=== PATIENT | female | born 1940 | race Caucasian/White ===

== ENCOUNTER 2019-10-08 09:01 | Outpatient (CLI) | payer MEDICARE ==
--- NOTE | 2019-10-08 09:25 | RAD ---
EXAM: 4 views of the right knee HISTORY: Knee pain COMPARISON: None FINDINGS: A small knee effusion is seen. There appears to be a fracture of the patella. No significan t degenerative changes are seen. No soft tissue swelling is present. IMPRESSION: Right patellar fracture
== END 2019-10-08 09:02 | disposition home or self-care (01) ==
LOC: BICRAD 09:01
PROVIDERS: ATTEND Family Medicine
DX: M25.561 Pain in right knee (principal); S82.001A Unspecified fracture of right patella, initial encounter for closed fracture

== ENCOUNTER 2021-08-24 11:47 | Outpatient (CLI) | payer MEDICARE | END 2021-08-24 11:48 | disposition home or self-care (01) | LOC: BICRAD 11:47 | PROVIDERS: ATTEND Family Medicine | DX: M79.671 Pain in right foot (principal); S92.351A Displaced fracture of fifth metatarsal bone, right foot, initial encounter for closed fracture ==

== ENCOUNTER 2021-10-12 09:40 | Outpatient (CLI) | payer MEDICARE | END 2021-10-12 09:41 | disposition home or self-care (01) | LOC: BICRAD 09:40 | PROVIDERS: ATTEND Family Medicine | DX: S92.354D Nondisplaced fracture of fifth metatarsal bone, right foot, subsequent encounter for fracture with routine healing (principal); S82.024A Nondisplaced longitudinal fracture of right patella, initial encounter for closed fracture; M79.671 Pain in right foot ==

== ENCOUNTER 2021-11-11 09:47 | Outpatient (CLI) | payer MEDICARE | END 2021-11-11 09:48 | disposition home or self-care (01) | LOC: BICRAD 09:47 | PROVIDERS: ATTEND Family Medicine | DX: S92.354D Nondisplaced fracture of fifth metatarsal bone, right foot, subsequent encounter for fracture with routine healing (principal); M79.671 Pain in right foot ==

== ENCOUNTER 2024-03-21 09:39 | Outpatient (CLI) | payer MEDICARE ==
[2024-03-21] MEDS ORDERED: E-Z-HD 98% W/W 340GM BOT (x-ray ONLY) ONE (09:50)
[2024-03-21] MEDS ORDERED: Barium Sulfate 96% 176 GM BOT (xray ONLY) ONE (09:50)
== END 2024-03-21 09:40 | disposition home or self-care (01) ==
LOC: RAD 09:39
PROVIDERS: ATTEND Family Medicine
DX: R13.19 Other dysphagia (principal); R63.4 Abnormal weight loss; R19.2 Visible peristalsis
CPT/HCPCS: 74220